=== PATIENT | male | born 1965 | race Caucasian/White ===

== ENCOUNTER 2018-05-13 09:44 | Day surgery (SDC) | payer OTHER ==
[~2018-05-13] VITALS: Ht 180.3 cm; Wt 69.5 kg
[2018-05-13] MEDS ORDERED: SODIUM CHLORIDE 0.9% 1,000 ML IV ONE (10:50)
[2018-05-13 10:55] VITALS: BP 130/83
[2018-05-13] MEDS ORDERED: ASPIRIN 325 MG TABLET EC PO ONE (11:00)
[2018-05-13] MEDS ORDERED: ASPIRIN 325 MG TABLET EC ONE (11:06)
[2018-05-13 11:39] LABS: BASOPHILS # (AUTO) 0.03 x10^3/uL (0-0.1); BASOPHILS % (AUTO) 1 % (0-1); EOSINOPHILS # (AUTO) 0.12 x10^3/uL (0-0.4); EOSINOPHILS % (AUTO) 3 % (1-7); LYMPHOCYTES # (AUTO) 1.12 x10^3/uL (1-3.4); LYMPHOCYTES % (AUTO) 25 % (22-44); MD NO; MEAN CORPUSCULAR HEMOGLOBIN 32.5 pg (27.5-34.5); MEAN CORPUSCULAR HGB CONC 34.9 g/dL (33.2-36.2); MONOCYTES # (AUTO) 0.31 x10^3/uL (0.2-0.8); MONOCYTES % (AUTO) 7 % (2-9); NEUTROPHILS # (AUTO) 2.92 x10^3/uL (1.8-6.8); NEUTROPHILS % (AUTO) 65 % (42-75); PLATELET COUNT 248 x10^3/uL (130-400); RED BLOOD COUNT 4.58 x10^6/uL (4.38-5.82); RED CELL DISTRIBUTION WIDTH 12.6 % (9.4-14.8)
[2018-05-13 11:50] LABS: ANION GAP 6 mmol/L (5-15); CALCIUM 8.3 mg/dL (8.5-10.1); CHLORIDE 109 mmol/L (98-107); CREATININE 1.06 mg/dL (0.7-1.3)
[2018-05-13] MEDS ORDERED: MIDAZOLAM 1 MG/ML, 5ML ONE (12:06)
[2018-05-13] MEDS ORDERED: TICAGRELOR 90 MG TABLET ONE (12:06)
[2018-05-13] MEDS ORDERED: FENTANYL PF 100 MCG/2ML ONE (12:06)
[2018-05-13] MEDS ORDERED: BIVALIRUDIN 250 MG ONE (12:06)
[2018-05-13] MEDS ORDERED: VERAPAMIL 2.5 MG/ML, 2ML ONE (12:06)
[2018-05-13] MEDS ORDERED: LIDOCAINE-MPF 2%, 2ML ONE (12:07)
[2018-05-13] MEDS ORDERED: HEPARIN 1,000 UNITS/ML, 10ML ONE (12:07)
[2018-05-13] MEDS ORDERED: SODIUM CHLORIDE 0.9% 1,000 ML IV SCH (12:48)
[2018-05-13] MEDS ORDERED: ACETAMINOPHEN 325 MG TABLET PO PRN (13:00)
[2018-05-13] MEDS ORDERED: CHOL200074 PO (13:38)
[2018-05-13] MEDS ORDERED: LORA1TAB PO (13:38)
[2018-05-13] MEDS ORDERED: OMEG-72 PO (13:38)
== END 2018-05-13 15:13 | disposition home or self-care (01) ==
LOC: CACL 09:44
PROVIDERS: ATTEND Internal Medicine Cardiovascular Disease
DX: I25.110 Atherosclerotic heart disease of native coronary artery with unstable angina pectoris (principal); F41.9 Anxiety disorder, unspecified; F19.90 Other psychoactive substance use, unspecified, uncomplicated; Z79.82 Long term (current) use of aspirin; Z88.6 Allergy status to analgesic agent; Z79.890 Hormone replacement therapy
CPT/HCPCS: 36415; 80048; 85025; 93458; 99156; C1769; C1894; J1644; J2250; J3010; J3490; Q9967; J0583